=== PATIENT | male | born 1980 | race Caucasian/White ===

== ENCOUNTER 2020-04-11 12:52 | Outpatient (REF) | payer MEDICARE, MEDICAID, SELFPAY ==
[2020-04-11 14:36] LABS: MANUAL DIFF FLAG NO
[2020-04-11 14:42] LABS: Basophils Percent Auto 0.9 % (0-2); Eosinophils Absolute Auto 0.2 X10*3/uL (0.0-0.4); Eosinophils Percent Auto 4.3 % (0-4); Hematocrit 41.9 % (42-52); Hemoglobin 13.9 g/dl (14.0-18.0); Lymphocytes Absolute Auto 2.3 X10*3/uL (1.2-4.9); Lymphocytes Percent Auto 51.7 % (20-40); Mean Corpuscular HGB Conc 33.2 g/dl (31.0-36.0); Mean Corpuscular Hemoglobin 28.1 pg (27.0-33.0); Mean Corpuscular Volume 84.6 fL (80-98); Mean Platelet Volume 9.4 fL (9.4-12.4); Monocytes Absolute Auto 0.4 X10*3/uL (0.1-1.2); Monocytes Percent Auto 8.7 % (2-11); Neutrophils Absolute Auto 1.5 X10*3/uL (2.0-8.3); Neutrophils Percent Auto 34.4 % (45-73); Platelet Count 317 X10*3/uL (160-400); Red Blood Count 4.95 X10*6/uL (4.60-5.80); Red Cell Distribution Width 12.1 % (11.0-16.0); White Blood Count 4.4 X10*3/uL (4.8-10.8)
[2020-04-11 15:12] LABS: Alanine Aminotransferase 42 U/L (0-40); Albumin Level 4.6 g/dL (3.5-5.0); Alkaline Phosphatase 63 U/L (39-117); Anion Gap 13 (12-20); Aspartate Amino Transferase 32 U/L (5-37); Bilirubin Total 0.8 mg/dL (0.0-1.0); Blood Urea Nitrogen 11 mg/dL (9-16); Calcium 9.4 mg/dL (8.4-10.2); Carbon Dioxide 28 mmol/L (22-29); Chloride 106 mmol/L (96-108); Estimated Glomerular Filt Rate > 60; Glucose Random 98 mg/dL (60-115); Potassium 4.3 mmol/l (3.3-5.1); Sodium 143 mmol/L (135-145); Total Protein 7.3 g/dL (6.5-8.0)
[2020-04-11 15:17] LABS: Alanine Aminotransferase 42 U/L (0-40); Albumin Level 4.6 g/dL (3.5-5.0); Alkaline Phosphatase 64 U/L (39-117); Anion Gap 13 (12-20); Aspartate Amino Transferase 31 U/L (5-37); Bilirubin Direct 0.3 mg/dL (0.0-0.5); Bilirubin Total 0.8 mg/dL (0.0-1.0); Blood Urea Nitrogen 11 mg/dL (9-16); Calcium 9.3 mg/dL (8.4-10.2); Carbon Dioxide 27 mmol/L (22-29); Chloride 106 mmol/L (96-108); Cholesterol 184 mg/dL; Estimated Glomerular Filt Rate > 60; Glucose Fasting 99 mg/dL (60-99); HDL Cholesterol 42 mg/dL; LDL Cholesterol Calculated 129 mg/dl; Potassium 4.3 mmol/l (3.3-5.1); Sodium 142 mmol/L (135-145); Total Protein 7.3 g/dL (6.5-8.0); Triglycerides 67 mg/dL
[2020-04-11 15:26] LABS: TSH reflex Free T4 1.13 mIU/mL (0.32-4.0)
[2020-04-12 10:09] LABS: HBsAGNum1 0.23 S/CO (0.00-0.99); HIV AB/AG Nonreactive (Nonreactive); HIV Num 1 0.06 S/CO (0.00-0.99); Hepatitis B Surface Antigen Negative (Negative); ~HepC Num1 0.12 S/CO (0.00-0.79); ~Hepatitis C Antibody Nonreactive (Nonreactive)
== END 2020-04-11 12:53 | disposition home or self-care (01) ==
LOC: HO.LAB 12:52
PROVIDERS: Visit Provider Nurse Practitioner Family
DX: Z11.4 Encounter for screening for human immunodeficiency virus [HIV] (principal); Z01.84 Encounter for antibody response examination; L30.4 Erythema intertrigo; T14.8XXA Other injury of unspecified body region, initial encounter; F11.20 Opioid dependence, uncomplicated
CPT/HCPCS: 36415; 80048; 80053; 80061; 80076; 84443; 85025; 86803; 87340; 87389

== ENCOUNTER 2021-05-10 13:55 | Outpatient (REF) | payer MEDICARE, MEDICAID, SELFPAY ==
[2021-05-10 15:00] LABS: Influenza A PCR NEGATIVE (Negative); Influenza B PCR NEGATIVE (Negative); Resp Syncy Virus RNA Qual PCR POSITIVE (Negative); SARS COV2 PCR INHOUSE NEGATIVE (Negative)
== END 2021-05-10 13:56 | disposition home or self-care (01) ==
LOC: HO.LNP 13:55
PROVIDERS: Visit Provider Physician Assistant Medical
DX: Z20.822 Contact with and (suspected) exposure to COVID-19 (principal); J06.9 Acute upper respiratory infection, unspecified
CPT/HCPCS: 0241U

== ENCOUNTER 2021-11-29 12:56 | Outpatient (REF) | payer MEDICARE, MEDICAID, SELFPAY ==
[2021-11-29 13:12] LABS: MANUAL DIFF FLAG NO
[2021-11-29 13:27] LABS: Basophils Absolute Auto 0.1 X10*3/uL (0.0-0.2); Basophils Percent Auto 0.8 % (0-2); Eosinophils Absolute Auto 0.4 X10*3/uL (0.0-0.4); Eosinophils Percent Auto 5.7 % (0-4); Hematocrit 46.1 % (42.0-52.0); Hemoglobin 15.5 g/dl (14.0-18.0); Imm Gran Abs Auto 0.01 X10*3/uL (0.00-0.03); Imm Gran Pct Auto 0.2 % (0.0-0.4); Lymphocytes Absolute Auto 2.5 X10*3/uL (1.2-4.9); Lymphocytes Percent Auto 40.4 % (20-40); Mean Corpuscular HGB Conc 33.6 g/dl (31.0-36.0); Mean Corpuscular Hemoglobin 28.4 pg (27.0-33.0); Mean Corpuscular Volume 84.4 fL (80.0-98.0); Mean Platelet Volume 9.1 fL (9.4-12.4); Monocytes Absolute Auto 0.5 X10*3/uL (0.1-1.2); Monocytes Percent Auto 7.8 % (2-11); Neutrophils Absolute Auto 2.8 x10*3/uL (2.0-8.3); Neutrophils Percent Auto 45.1 % (45-73); Platelet Count 290 X10*3/uL (160-400); Red Blood Count 5.46 X10*6/uL (4.60-5.80); Red Cell Distribution Width 13.1 % (11.0-16.0); White Blood Count 6.2 X10*3/uL (4.8-10.8)
[2021-11-30 08:07] LABS: ~HepC Num1 0.12 S/CO (0.00-0.79); ~Hepatitis C Antibody Nonreactive (Nonreactive)
[2021-11-30 08:08] LABS: HBS Num1 0.61 mIU/mL (0-7.99); HBsAGNum1 0.26 S/CO (0.00-0.99); HIV AB/AG Nonreactive (Nonreactive); HIV Num 1 0.06 S/CO (0.00-0.99); Hepatitis B Surface Antigen Negative (Negative); ~Hepatitis B Surface Antibody NONREACTIVE (Nonreactive)
== END 2021-11-29 12:57 | disposition home or self-care (01) ==
LOC: HO.LAB 12:56
PROVIDERS: Visit Provider Internal Medicine
DX: Z11.4 Encounter for screening for human immunodeficiency virus [HIV] (principal); F11.20 Opioid dependence, uncomplicated
CPT/HCPCS: 36415; 85025; 86706; 86803; 87340; 87389

== ENCOUNTER 2023-08-20 13:34 | Outpatient (REF) | payer MEDICARE, MEDICAID, SELFPAY ==
[2023-08-20 14:18] LABS: MANUAL DIFF FLAG NO
[2023-08-20 15:17] LABS: Basophils Percent Auto 0.5 % (0-2); Eosinophils Absolute Auto 0.3 X10*3/uL (0.0-0.4); Eosinophils Percent Auto 3.3 % (0-4); Hematocrit 41.5 % (42.0-52.0); Hemoglobin 14.2 g/dl (14.0-18.0); Imm Gran Abs Auto 0.02 X10*3/uL (0.00-0.03); Imm Gran Pct Auto 0.2 % (0.0-0.4); Lymphocytes Absolute Auto 2.6 X10*3/uL (1.2-4.9); Lymphocytes Percent Auto 31.2 % (20-40); Mean Corpuscular HGB Conc 34.2 g/dl (31.0-36.0); Mean Corpuscular Hemoglobin 28.5 pg (27.0-33.0); Mean Corpuscular Volume 83.3 fL (80.0-98.0); Mean Platelet Volume 8.9 fL (9.4-12.4); Monocytes Absolute Auto 0.7 X10*3/uL (0.1-1.2); Monocytes Percent Auto 8.4 % (2-11); Neutrophils Absolute Auto 4.7 x10*3/uL (2.0-8.3); Neutrophils Percent Auto 56.4 % (45-73); Platelet Count 335 X10*3/uL (160-400); Red Blood Count 4.98 X10*6/uL (4.60-5.80); Red Cell Distribution Width 12.2 % (11.0-16.0); White Blood Count 8.3 X10*3/uL (4.8-10.8)
[2023-08-21 04:22] LABS: HBsAGNum1 0.46 S/CO (0.00-0.99); HIV AB/AG Nonreactive (Nonreactive); HIV Num 1 0.05 S/CO (0.00-0.99); Hepatitis B Surface Antigen Negative (Negative); ~HepC Num1 0.13 S/CO (0.00-0.79); ~Hepatitis C Antibody Nonreactive (Nonreactive)
== END 2023-08-20 13:35 | disposition home or self-care (01) ==
LOC: HO.LAB 13:34
PROVIDERS: PCP Physician Assistant; Visit Provider Internal Medicine
DX: Z11.4 Encounter for screening for human immunodeficiency virus [HIV] (principal); F11.20 Opioid dependence, uncomplicated
CPT/HCPCS: 36415; 85025; 86803; 87340; 87389

== ENCOUNTER 2025-04-21 11:37 | Outpatient (AMB) | payer MEDICARE, MEDICAID, SELFPAY ==
--- NOTE | 2025-04-21 11:38 | MHC.PC.OV ---
Vital Signs 04/21/25 11:41 04/21/25 12:04 Height 6 ft 1 in Weight 301 lb 6 oz BMI 39.8 BP 160/110 H 148/96 H Blood Pressure Location Lt brachial Lt brachial Position Sitting Sitting Pulse 84 Pulse Source Pulse Oximeter Temp 97.3 F Temp Source Temporal Artery Scan Pulse Oximetry (%) 96 Oxygen Delivery Method Room Air Intake Visit Reasons: sleep apnea and constant coughing Allergies No Known Allergies Allergy (Verified 04/21/25 11:48) Medication List - Last Reconciled 04/21/25 by Josie Mc PA-C buprenorphine-naloxone 8-2 mg (Suboxone) 25 mg sublingual DAILY varenicline tartrate (Chantix Starting Month Box) PO PER PKG DIR Tobacco use date assessed: 04/21/25 Dental Screening Dental Screen Date: 04/21/25 Did you have a dental visit in the last 12 months?: Yes Did you have a dental problem in the last 6 months where you did not have access to dental care?: No Was dental information given to patient?: Patient has dentist HPI sleep apnea and constant coughing HPI Details 44 year old male coming to the office for the first time. Presenting as a new patient with a persistent cough and dyspnea. He reports that for the last two weeks he has been experiencing a nocturnal cough and feels like he is drowning and gasps for air when lying on his back. This is associated with excessive sleepiness of 10-12 hours per day, which is abnormal for him. These symptoms began after he had a COVID-19 infection in early March. His girlfriend has noted that he stops breathing and gasps for air regularly during sleep. The patient is a daily cigarette smoker and has been smoking since he was 19, though he previously quit for 4.5 years. He has previously tried Chantix, the patch, gum, lozenges, and Wellbutrin to quit smoking with limited success. He is currently using Chantix again through [employer]. [facility] Family History Father No problems noted. Mother No problems noted. Maternal Grandmother Lung cancer Paternal Grandfather Heart attack Paternal Grandmother Heart attack Social History Housing: House Patient Tobacco Use Status: Current everyday Tobacco user Tobacco use type: Cigarette Cigarettes Per Day: 20 e-Cigarette/Vaping Use: Never Used Second Hand Smoke Exposure: Yes service: No Current occupational status: disabled Cognitive needs: No Hearing needs: No Vision needs: No Questionnaire PHQ-9 Over the last 2 weeks, how often have you been bothered by any of the following problems? 1. Little interest or pleasure in doing things: more than half the days 2. Feeling down, depressed, or hopeless: not at all 3. Trouble falling or staying asleep, or sleeping too much: several days 4. Feeling tired or having little energy: more than half the days 5. Poor appetite or overeating: not at all 6. Feeling bad about yourself - or that you are a failure or have let yourself or your family down: not at all 7. Trouble concentrating on things, such as reading the newspaper or watching television: not at all 8. Moving or speaking so slowly that other people could have noticed. Or the opposite - being so fidgety or restless that you have been moving around a lot more than usual: not at all 9. Thoughts that you would be better off or of hurting yourself in some way: not at all Total score: 5 Depression Screening Interpretation: Positive Depression Screening Follow-up: Existing condition and Declines treatment Depression Screening Done: Yes Source: Developed by Drs. Vinayak George, Ana Vidales, Darrius Mancini and colleagues, with an educational tran from [employer] Thrive Questionnaire Date Thrive assessed: 04/21/25 I am a: Patient What is your living situation today?: I have a steady place to live THRIVE Score: 0 AUDIT C Alcohol Use Questionnaire (AUDIT-C) 1. How often do you have a drink containing alcohol?: Never 3. How often do you have six or more drinks on one occasion?: Never Total Score: 0 MEENA-7 AMB Questionnaire MEENA-7 Date MEENA - 7 assessed: 04/21/25 Feeling nervous, anxious, or on edge: 0 = Not at all Not being able to stop or control worryin = Not at all Worrying too much about different things: 0 = Not at all Trouble relaxin = Not at all Being so restless that it is hard to sit still: 0 = Not at all Becoming easily annoyed or irritable: 1 = Several days Feeling afraid as if something awful might happen: 0 = Not at all Total MEENA-7 score (0-4 normal; 5-9 mild; 10-14 moderate; 15-21 severe): 1 Source: Developed by Drs. Vinayak George, Ana Vidales, Darrius Mancini and colleagues, with an educational tran from [employer]. Review of Systems Const Denies body aches, Denies fatigue, Reports fever(s), Denies frequent falls, Reports headache(s) and Denies weakness Eyes Reports no additional complaints and Denies change in vision ENT Denies dizziness, Denies facial pain, Reports headache(s) and Denies nasal congestion Card Denies chest pain, Denies syncope, Denies irregular heart rhythm, Denies leg edema, Denies lightheadedness and Reports dyspnea Resp Reports cough, Reports excessive phlegm production and Reports dyspnea GI Denies constipation, Denies diarrhea, Denies nausea and Denies vomiting Denies dysuria, Denies urinary frequency, Denies urinary hesitancy and Denies urinary urgency Musc Denies back pain and Denies myalgias Skin/Breast Reports system reviewed and no additional complaints, except as documented Neuro Denies dizziness, Denies syncope, Denies frequent falls, Reports headache(s) and Denies weakness Psych Reports no additional complaints Endo Denies fatigue Physical exam (Primary Care) Vital Signs: Last Vital Signs Temp 97.3 F 04/21/25 11:41 Pulse 84 04/21/25 11:41 BP 148/96 H 04/21/25 12:04 Pulse Ox 96 04/21/25 11:41 Oxygen Delivery Method Room Air 04/21/25 11:41 BMI result Body Mass Index 39.8 Tobacco/Smoking Status: Tobacco use Status Tobacco use date assessed 04/21/25 04/21/25 11:48 Patient Tobacco Use Status Current everyday Tobacco 04/21/25 11:48 Tobacco use type Cigarette 04/21/25 11:48 e-Cigarette/Vaping Use Never Used 04/21/25 11:48 PHQ-9: PHQ-9 Score PHQ-9: Total score 5 04/21/25 14:41 Depression Screening Interpretation: Positive Depression Screening Follow-up: Existing condition and Declines treatment Thrive Assessment: Date of Thrive Assessment Date Thrive assessed 04/21/25 04/21/25 11:50 Const General: cooperative, healthy appearing, comfortable and no acute distress Orientation/consciousness: patient oriented x3 HENMT Head: Yes normocephalic Ears: hearing grossly normal bilaterally General nose exam: Normal external nose present Eyes General: appearance normal, both eyes and all related structures Conjunctivae: conjunctivae normal Neck Neck: Yes full ROM and Yes no lymphadenopathy Resp Effort & Inspection: normal respiratory effort Auscultation: clear to auscultation bilaterally, no crackles, no rales, no rhonchi and no wheezes Cardio Rate: regular rate Rhythm: regular rhythm Skin General skin exam: no rashes or lesions noted Neuro General: patient oriented x3 Gait exam (Neuro): Normal gait present Extrem General: Yes normal to inspection, Yes full ROM and No edema Psych Affect: normal affect Attitude: cooperative Insight: Good insight present (Psych) Judgement: Good judgement present (Psych) Coding Level of Care Code New Pt Level 4 (08696) Diagnoses Tobacco use disorder F17.200 Substance use disorder F19.90 Elevated blood pressure reading R03.0 Cough R05.9 Hypersomnolence G47.10 Assessment & Plan Assessment & Plan (1) Tobacco use disorder: Comment: Tonie Alvarado Code(s): F17.200 - Nicotine dependence, unspecified, uncomplicated Category: Medical Plan: The patient is a daily smoker who expresses interest in quitting. He has a history of trying multiple cessation aids, including Chantix, which he recently started again. If the current trial of Chantix is unsuccessful, a more consistent trial of Wellbutrin can be considered as the next step, though not concurrently due to potential cardiac effects. (2) Substance use disorder: Comment: Tonie Alvarado Code(s): F19.90 - Other psychoactive substance use, unspecified, uncomplicated Category: Medical Plan: Continue to follow with clean site and continue on Suboxone (3) Elevated blood pressure reading: Code(s): R03.0 - Elevated blood-pressure reading, without diagnosis of hypertension Category: Medical Plan: The patient's blood pressure was elevated at 146/98 mmHg during the visit. While this may be reactive to his acute illness, stress, or other factors, monitoring is warranted. A blood pressure cuff will be provided for home monitoring, with instructions to check it three to four times a week and keep a log. Lifestyle modifications, including salt reduction, were discussed. A follow-up is scheduled in six weeks to review the blood pressure log and lab results. (4) Cough: Code(s): R05.9 - Cough, unspecified Category: Medical Plan: The patient's two-week history of cough, dyspnea when supine, and fatigue following a recent viral illness is concerning for a lower respiratory tract infection, including pneumonia, especially given his smoking history. A stat chest X-ray and blood work including a CBC have been ordered to rule out pneumonia and an acute infectious process. A prescription for Mucinex was provided for symptomatic relief of mucus production. If the chest X-ray confirms pneumonia, antibiotics will be prescribed; if it is normal, a course of prednisone will be considered for bronchitis. (5) Hypersomnolence: Code(s): G47.10 - Hypersomnia, unspecified Category: Medical Plan: The patient's report of excessive sleepiness and his partner's observation of apneic episodes and gasping for air during sleep are highly suspicious for obstructive sleep apnea. An order has been placed for an at-home sleep study to confirm the diagnosis. Plan This note was constructed using voice recognition software. While every effort has been made to ensure accuracy and harbor tug captain, still areas may have been included sometimes these areas may affect the content or meeting of the given symptoms. Total time spent caring for the patient today was 30 minutes. This includes time spent before the visit reviewing the chart, time spent during the visit, and time spent after the visit and documentation. Patient was informed and verbally consented to the use of an ambient scribe for clinic note documentation during this visit. Orders: Orders TSH reflex Free T4 04/21/25 Z13.29 - Encounter for screening for other suspected endocrine disorder Vitamin B12 and Folate 04/21/25 Z13.21 - Encounter for screening for nutritional disorder Vitamin D 25-OH Total 04/21/25 Z13.21 - Encounter for screening for nutritional disorder Complete Blood Count Auto Diff 04/21/25 Z13.0 - Encounter for screening for diseases of the blood and blood-forming organs and certain disorders involving the immune mechanism Lipid Panel 04/21/25 Z13.220 - Encounter for screening for lipoid disorders XR chest 2V 04/21/25 R05.9 - Cough, unspecified NT Pro B Type Natriuretic Pept 04/21/25 R05.9 - Cough, unspecified Hemoglobin A1c 04/21/25 Z13.1 - Encounter for screening for diabetes mellitus Comprehensive Met. Panel 04/21/25 F19.90 - Other psychoactive substance use, unspecified, uncomplicated RT home sleep study 04/21/25 G47.10 - Hypersomnia, unspecified Referrals Pulmonology Referral J84.9 - Interstitial pulmonary disease, unspecified Medications: New azithromycin For 250 mg dose pack: take 500 mg today (day 1), then 250 mg for 4 days (days 2-5) PO 6 tabs 0RF prednisone Take 4 tablets on days 1-2, take 3 tablets on days 3-4, take 2 tablets on days 5-6, take 1 tablet on days 7-8. 10 mg PO DIRECTED 20 tabs 0RF guaifenesin ER (Mucinex) 600 mg PO Q12H PRN 30 tabs 0RF congestion blood pressure test kit-large As directed 1 ea 0RF R03.0 - Elevated blood-pressure reading, without diagnosis of hypertension
[2025-04-21 11:41] VITALS: BP 160/110; PULSE 84; TEMP 36.3; O2SAT 96; BMI 39.8
[2025-04-21 12:04] VITALS: BP 148/96
--- OUTSIDE RECORDS SUMMARY | 2025-04-21 14:35 | XMS_ITS | Data Portability ---
Author Organization [place] - [facility], [facility] Address [address] [place] [address] Assessment Encounter Date Assessment Date Assessment LastModified by Organization Details LastModified Time 02/06/2023 02/06/2023 Rapid strep: Negative Jessi: + COVID, influenza B 1. Contact with and (suspected) exposure to other viral communicable diseases 2. COVID-19 3. Influenza B PLAN: R est, push fluids, Tylenol prn, gargles, change toothbrush Pt requesting script for 800mg ibuprofen as directed Fu prn/with worsening symptoms The patient understands and agrees with the plan [email or web address] Not available 02/06/2023 15:04:58 Plan of Treatment Reminders Order Date Submit Date Provider Last Modified By Organization Details Last Modified Time Details Appointments None recorded. Lab rapid influenza virus A + B and SARS CoV + SARS CoV 2 Ag panel, [place], upper respirato ry specimen 2022 023 [facility], [address] [place] [address], [id number], 3 14:39:49 rapid strep group A, throat 2022 023 [facility], [address] [place] [address], [id number], 14:29:26 Referral None recorded. Procedures None recorded. Surgeries None recorded. Imaging None recorded. Medication Orders ibuprofen 800 mg tablet 2022 023 [id number], [address] [place], [place], [phone], 3 15:04:36 albuterol sulfate HFA 90 mcg/actua tion aerosol inhaler 2022 023 [id number], [address], [place], [phone], 3 15:03:03 Patient TargetsNo targets recorded. Patient InstructionsNo instructions recorded. Reason for Referral None Reported. Results Created Date Observation Date Name Description Value Unit Range Abnormal Flag Note LastModifiedBy Organization Detail LastModifiedTime 02/07/2002/09/2023 STREP TOCOC CUS, GROUP A CULTU RE streptococcu s, group A culture SEE NOTE STREP TOCOC CUS, GROUP A CULTU RE Micro Numbe r: [id number] Test Statu s: Final Speci men Sourc e: Not given Speci men Quali ty: Adequ ate Resul t: No group A Strep tococ cus isola fuentes Not Available [facility] [address], [place], [address], 02/09/2023 05:16:55 02/07/2002/06/2023 rapid influ ho virus A + B and SARS CoV + SARS CoV 2 Ag panel , [place], upper respi rator y speci men flu A negati ve normal Not Available [address], [address], 02/06/2023 14:17:34 02/07/20 23 02/06/2023 rapid influ ho virus A + B and SARS CoV + SARS CoV 2 Ag panel , [place], upper respi rator y speci men flu B positi ve abnormal Not Available [address], [address], 02/06/2023 14:17:34 02/07/20 23 02/06/2023 rapid influ ho virus A + B and SARS CoV + SARS CoV 2 Ag panel , [place], upper respi rator y speci men sars positi ve abnormal Not Available [address], [address], 02/06/2023 14:17:34 02/07/20 23 02/06/2023 rapid strep group A, throa t rapid strep negati ve normal Not Available [address], [address], 02/06/2023 14:17:37 02/07/20 23 02/06/2023 rapid strep group A, throa t internal control verified Not Available [address], [address], 02/06/2023 14:17:37 Result Notes None recorded. Problems Name Problem SNOMED Code Status Onset Date Resolution Date Notes Provider Name and Address Organization Details Recorded Time Body mass index 30+ - obesity 185596274 Active 023 OSMAR HUERTA [address] [place], [address], [facility] 3 14:11:41 Tobacco user 819708963 Active 023 OSMAR HUERTA [address] [place], [address], [facility] 3 14:18:50 COVID-19 273438793 Active 023 02/12 OSMAR HUERTA [address] [place], [address], [facility] 3 15:04:03 Problem Notes None recorded. Medical Equipment None Reported. Allergies No known drug allergies Medications Name Sig Start Date Stop Date Status Note LastModified by Organization Details LastModified Time ibuprofen 800 mg tablet Take 1 tablet 3 times a day by oral route for 5 days. 2022 active Not Available Not Available Not Avai lable albuterol sulfate HFA 90 mcg/actuati on aerosol inhaler Inhale 2 puffs every 4-6 hours by inhalation route for 5 days. 2022 active Not Available Not Available Not Avai lable Suboxone active Not Available Not Avai lable Not Available Chantix active Not Available Not Avail able Not Available Vitals Date Recorded Body height Body mass index (BMI) Body weight Oxygen saturation Oxygen saturation in Arterial blood by Pulse oximetry Heart rate Systolic And Diastolic Provider Name and Address Organization Details Last Updated DateTime 3 187.96 cm 38.4 kg/m2 649120. 12 g 97 % 97 % 85 /min 143/99 mm[Hg] Bhakti Franklin [facility] 14:01:43 Date Recorded Body height Body mass index (BMI) Body weight Oxygen saturation Oxygen saturation in Arterial blood by Pulse oximetry Body temperature Systolic And Diastolic Provider Name and Address Organization Details Last Updated DateTime 3 187.96 cm 38.4 kg/m2 864646. 12 g 97 % 97 % 97.9 [degF] 143/99 mm[Hg] Pawel Gaona [facility] 3 14:10:56 Social History None recorded. Functional Status None recorded. Mental Status None recorded. Family History Nothing Reported. Medical History No medical history recorded. Past Encounters Encounter ID Performer Location Encounter Start Date Encounter Closed Date Diagnosis/Indication Diagnosis SNOMED-CT Code Diagnosis ICD10 Code Diagnosis IMO Codes Diagnosis Note [id number] OSMAR HUERTA [facility] [address] [place] [address] 02/06/2023 14:10:21 02/06/2023 17:28:01 Upper respiratory infection 60107724 J06.9 COVID-19 005082476 U07.1 Influenza caused by Influenza B virus 93654595 J10.1 Health Concerns Section Related Observation LastModified by Organization Detai ls LastModified Time None Recorded Concern Status LastModified by Organization Details LastModified Time None Recorded Advance Directives Directive None Recorded Payers Insurance Date Sequence Insurance Name Policy Number Policy Hutchinson Covered Member ID Hutchinson Member ID Guarantor Name 03/06/2023 1 [place]ICARE B-[place]: [employer] Horace Yin [id number] Horace Yin 02/07/2023 MEDICARE B-[place]: [facility] Horace Mott Annamaria [id number] 7 Horace Mott Annamaria 02/07/2023 MEDICARE A-[place]: [facility] Horace Chaparrokathejesus [id number] 7 Horace Mott Annamaria Notes Date Note Type Note Provider Name and Address Organization Details Recorded Time 02/06/2023 text/html ROS as noted in the HPI The patient is a pleasant 42 year old male c/o ST, ear fullness, dry cough/wheezing, feeling feverish for the last week. The patient denies V/D, ear pain, SOB/hemoptysis, rash, myalgias/arthra lgias or loss of taste/smell. +smoker:15/day; trying to quit. No recent sick contacts/travel . Has had previous negative COVID testing. Had COVID vaccinations. Poor water drinker. Not taking any OTC cold medications. OSMAR HUERTA [address] [place], [address], [facility] 02/06/2023 15:05:31
== END 2025-04-21 12:25 | disposition home or self-care (01) ==
LOC: HO.HMCH 11:37
PROVIDERS: PCP Physician Assistant
DX: F17.200 Nicotine dependence, unspecified, uncomplicated (principal); F19.90 Other psychoactive substance use, unspecified, uncomplicated; R03.0 Elevated blood-pressure reading, without diagnosis of hypertension; R05.9 Cough, unspecified; G47.10 Hypersomnia, unspecified

== ENCOUNTER 2025-04-21 11:37 | Outpatient (REF) | payer MEDICARE, MEDICAID, SELFPAY ==
--- NOTE | ~2025-04-21 | XR_ITS ---
EXAMINATION: XR CHEST CLINICAL INFORMATION: R05.9 - Cough, unspecified COMPARISON: April 25, 2018 TECHNIQUE: PA and lateral views FINDINGS: Pulmonary reticular pattern. No gross consolidation, pleural effusion or pneumothorax. No hyperinflation. Cardiomediastinal silhouette size is normal. Multilevel spondylosis, thoracolumbar spine resulting in kyphotic deformity. XR/XR chest 2V IMPRESSION: Concerning chronic interstitial lung disease. Superimposed acute small airway inflammatory process cannot be excluded. Electronically signed by: Hugh Ambriz MD 04/21/2025 01:18 PM EDT
[2025-04-21 13:31] LABS: MANUAL DIFF FLAG NO
[2025-04-21 13:46] LABS: Hematocrit 44.9 % (42.0-52.0); Hemoglobin 14.9 g/dl (14.0-18.0); Imm Gran Abs Auto 0.02 X10*3/uL (0.00-0.03); Imm Gran Pct Auto 0.2 % (0.0-0.4); Lymphocytes Absolute Auto 2.7 X10*3/uL (1.2-4.9); Mean Corpuscular HGB Conc 33.2 g/dl (31.0-36.0); Mean Corpuscular Hemoglobin 28.4 pg (27.0-33.0); Mean Corpuscular Volume 85.5 fL (80.0-98.0); NRBC Abs Auto 0.000 X10*3/uL (0.0-0.012); NRBC Pct Auto 0.0 /100WBC (0.0-0.2); Platelet Count 289 X10*3/uL (160-400); Red Blood Count 5.25 X10*6/uL (4.60-5.80); White Blood Count 8.0 X10*3/uL (4.8-10.8)
[2025-04-21 14:41] LABS: Albumin Level 4.7 g/dL (3.5-5.0); Alkaline Phosphatase 64 U/L (39-117); Anion Gap 11 (12-20); Aspartate Amino Transferase 39 U/L (5-37); Blood Urea Nitrogen 10 mg/dL (9-16); Calcium 9.2 mg/dL (8.4-10.2); Carbon Dioxide 26 mmol/L (22-29); Chloride 108 mmol/L (96-108); Cholesterol 178 mg/dL (<200); Estimated Glomerular Filt Rate > 60; HDL Cholesterol 34 mg/dL (>40); Potassium 4.1 mmol/L (3.3-5.1); Sodium 141 mmol/L (135-145); Total Protein 7.4 g/dL (6.5-8.0); Triglycerides 118 mg/dL (<150)
[2025-04-21 14:50] LABS: NT Pro B Type Natriuretic Pept 50.9 pg/mL (<300)
[2025-04-21 15:13] LABS: Alanine Aminotransferase 42 U/L (0-40)
[2025-04-21 15:19] LABS: Folate 8.7 ng/mL (> or = 4.0); Vitamin B12 362 pg/mL (200-900)
--- OUTSIDE RECORDS SUMMARY | 2025-04-21 15:51 | XMS_ITS | Clinical Summary ---
Author Organization [facility] Address [address] [place] [address] Care Team Providers Care Cloth Layer Name Role Phone Unavailable Primary Care Provider Unavailabl e Social History Tobacco Use Types Packs/Day Years Used Date Smoking Tobacco: Never Assessed Sex and Gender Information Value Date Recorded Sex Assigned at Not on file Legal Sex Male 5:58 AM EST Gender Identity Not on file Sexual Orientation Not on file Plan of Treatment Health Maintenance Due Date Last Done Comments DTaP,Tdap,and Td Vaccines (1 - Tdap) 2000 Hepatitis B Vaccines (1 of 3 - 19+ 3-dose series) 2000 HPV Vaccines (1 - 3-dose SCD M series) 2008 Depression Screening 06/23/2024 COVID-19 Vaccine (1 - 2023-2 5 season) 2025 Influenza Vaccine (#1) 2025 RSV Immunization Adult Patie nts (1 - 1-dose 75+ series) 2056 HIB Vaccines Aged Out No longer eligi ble based on patient's age to complete this topic Hepatitis A Vaccines Aged Out No long er eligible based on patient's age to complete this topic IPV Vaccines Aged Out No longer eligi ble based on patient's age to complete this topic MMR Vaccines Aged Out No longer eligi ble based on patient's age to complete this topic Meningococcal ACWY Vaccine Aged Out N o longer eligible based on patient's age to complete this topic Meningococcal B Vaccine Aged Out No l onger eligible based on patient's age to complete this topic Pneumococcal Vaccine: Pediat rics (0 to 5 Years) and At-Risk Patients (6 to 49 Years) Aged Out No longer eligible b ased on patient's age to complete this topic RSV Immunization Patients Un bigg 20 months Aged Out No longer eligible b ased on patient's age to complete this topic Varicella Vaccines Aged Out No longer eligible based on patient's age to complete this topic
== END 2025-04-21 11:38 | disposition home or self-care (01) ==
LOC: HO.LAB 11:37
PROVIDERS: PCP Physician Assistant
DX: R05.3 Chronic cough (principal); R03.0 Elevated blood-pressure reading, without diagnosis of hypertension; F19.90 Other psychoactive substance use, unspecified, uncomplicated; R06.00 Dyspnea, unspecified; F17.210 Nicotine dependence, cigarettes, uncomplicated; G47.10 Hypersomnia, unspecified; Z13.29 Encounter for screening for other suspected endocrine disorder; Z13.21 Encounter for screening for nutritional disorder; Z13.1 Encounter for screening for diabetes mellitus; Z13.0 Encounter for screening for diseases of the blood and blood-forming organs and certain disorders involving the immune mechanism; Z13.220 Encounter for screening for lipoid disorders
CPT/HCPCS: 36415; 71046; 80053; 80061; 82306; 82607; 82746; 83036; 83880; 84443; 85025; 96127; 99202

== ENCOUNTER → 2025-04-21 13:03 | Outpatient (BNV) | payer MEDICARE, MEDICAID, SELFPAY | PROVIDERS: PCP Physician Assistant; Visit Provider Radiology Diagnostic Radiology | DX: R05.9 Cough, unspecified (principal) | CPT/HCPCS: 71046 ==

== ENCOUNTER 2025-05-27 13:22 | Outpatient (AMB) | payer MEDICARE, MEDICAID, SELFPAY ==
[2025-05-27 13:30] VITALS: BP 148/82; PULSE 82; O2SAT 94; BMI 40.7
--- NOTE | 2025-05-27 13:30 | MHC.OFFVIS ---
Vital Signs 05/27/25 13:30 Height 6 ft 1 in Weight 308 lb 4 oz BMI 40.7 BP 148/82 H Blood Pressure Location Rt brachial Position Sitting Pulse 82 Pulse Source Pulse Oximeter Pulse Oximetry (%) 94 Oxygen Delivery Method Room Air Intake Visit Reasons: Interstitial pulmonary disease Allergies No Known Allergies Allergy (Verified 05/27/25 13:33) HPI HPI Interstitial pulmonary disease: Details: Horace is a pleasant 44 year old, current 35+ pack year smoker, with underlying h/o substance abuse on Suboxone. He was referred by PCP for pulmonary evaluation after recent abnormal CXR which was ordered for subacute cough. CXR demonstrated pulmonary reticular pattern, concerning for chronic interstitial lung disease vs superimposed acute small airway inflammatory process cannot be excluded. He reports that the cough began a couple of weeks after his second COVID-19 infection and lasted for approximately one month. The cough resolved with a course of prednisone and is no longer present. He denies any current chest tightness, wheezing, or shortness of breath when not sick. He has a history of recurrent respiratory infections but no personal or family history of asthma. Past albuterol use made him feel shaky. The patient is a current smoker, consuming two packs per day. He started smoking at age 19 and previously quit for five years. Prior quit attempts with Chantix, nicotine patches, and gum have been unsuccessful. 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 Blood work has shown slightly elevated eosinophils since 2019, and he tends to get sick in the spring and fall, unsure of seasonal allergies, no recent allergy testing. The patient reports sometimes waking up gasping for air and has a sleep study scheduled in 10 days to evaluate for sleep apnea, ordered by PCP. The patient reports consistently elevated blood pressure readings of 140/100 mmHg for the last few weeks and possibly for over a year. He recently obtained a blood pressure cuff from PCP and will be further discussing values at next appointment. [facility] Family History Father No problems noted. Mother No problems noted. Maternal Grandmother Lung cancer Paternal Grandfather Heart attack Paternal Grandmother Heart attack Social History (Updated 05/27/25 @ 13:33 by Na Downs CMA) Housing: House Patient Tobacco Use Status: Current everyday Tobacco user Tobacco use type: Cigarette Cigarette Packs Per Day: 2 Cigarettes Per Day: 40 e-Cigarette/Vaping Use: Never Used Second Hand Smoke Exposure: Yes service: No Current occupational status: disabled Cognitive needs: No Hearing needs: No Vision needs: No Review of Systems Const Denies chills, Denies excessive sweating, Denies fever(s), Denies headache(s) and Denies night sweats Eyes Denies dry eyes, Denies irritation and Denies itchy eyes ENT Reports Normal hearing present, Denies headache(s), Denies nasal congestion, Denies nasal discharge, Denies post nasal drip and Denies sore throat Card Denies chest pain, Denies chest pain at rest, Denies chest pain with activity, Denies claudication, Denies leg edema, Denies dyspnea, Denies dyspnea on exertion, Denies orthopnea and Denies paroxysmal nocturnal dyspnea Resp Denies chest congestion, Denies cough, Denies excessive phlegm production, Denies pain on inspiration, Denies pain with cough, Denies dyspnea, Denies dyspnea on exertion, Denies stridor and Denies wheezing Musc Denies myalgias Neuro Reports Normal hearing present and Denies headache(s) Endo Denies excessive sweating Mike/Lymph Denies lymphadenopathy Aller/Immun Denies itchy eyes, Denies seasonal rhinorrhea and Denies wheezing Physical Exam Vital Signs: Last Vital Signs Pulse 82 05/27/25 13:30 BP 148/82 H 05/27/25 13:30 Pulse Ox 94 05/27/25 13:30 Oxygen Delivery Method Room Air 05/27/25 13:30 BMI result Body Mass Index 40.7 Const General: cooperative, healthy appearing, comfortable, no acute distress, well developed and alert Nutritional Appearance: obese Orientation/consciousness: patient oriented x3 Limitations: no limitations HEENT Head: Yes normal to inspection, Yes normocephalic and Yes atraumatic Ears: hearing grossly normal bilaterally and external ears normal Eyes General: appearance normal, both eyes and all related structures Eyelids: Yes eyelids normal Sclerae: sclerae normal EOM: EOMs intact bilaterally Neck Neck: Yes normal visual inspection and Yes no lymphadenopathy Lymphatic: no lymphadenopathy noted Chest Chest palpation & inspection: normal inspection of the chest Resp Effort & Inspection: normal respiratory effort, able to speak in complete sentences, no audible wheezes, no cough, no stridor, not tachypneic, no tripod positioning and no use of accessory muscles Cardio Jugular venous distension: no JVD Rate: regular rate Rhythm: regular rhythm Skin Other: warm, dry General skin exam: no rashes or lesions noted Neuro General: patient oriented x3 Cranial nerves: Yes Normal hearing present Cognition (Neuro): normal cognition Gait exam (Neuro): Normal gait present Extrem General: Yes normal to inspection, Yes capillary refill normal, Yes no clubbing, cyanosis or edema and Yes no pedal edema Psych Appearance: grossly normal and well kempt Speech and movement: Normal speech and movement present and Clear speech present Affect: normal affect Attitude: cooperative Thought process: Normal thought process present Thought content: Normal thought content present Insight: Good insight present (Psych) Judgement: Good judgement present (Psych) Results Reviewed Results Reviewed: [address] [address] XRay Report Signed Patient: Horace Yin MR#: [id number] : 1980 Acct:[id number] Age/Sex: 44 / M ADM Date: 04/21/25 Loc: HO.LAB Attending Dr: Josie Mc PA-C Ordering Physician: Josie Mc PA-C Date of Service: 04/21/25 Procedure(s): XR chest 2V Accession Number(s): [id number] cc: Nazario Burt PA-C; Josie Mc PA-C~ Reason for Exam: R05.9 - Cough, unspecified EXAMINATION: XR CHEST CLINICAL INFORMATION: R05.9 - Cough, unspecified COMPARISON: April 25, 2018 TECHNIQUE: PA and lateral views FINDINGS: Pulmonary reticular pattern. No gross consolidation, pleural effusion or pneumothorax. No hyperinflation. Cardiomediastinal silhouette size is normal. Multilevel spondylosis, thoracolumbar spine resulting in kyphotic deformity. XR/XR chest 2V IMPRESSION: Concerning chronic interstitial lung disease. Superimposed acute small airway inflammatory process cannot be excluded. Electronically signed by: Hugh Ambriz MD 04/21/2025 01:18 PM EDT Dictated By: Hugh Orr MD Signed By: <Electronically signed by Hugh Pearl MD in OV> 04/21/25 1318 DD/ 1310 TD/TT: 04/21/25 1312 Electronic Coils Supervisor: Assessment & Plan Assessment & Plan (1) Recurrent respiratory infection: Code(s): J98.8 - Other specified respiratory disorders Category: Medical (2) Abnormal chest xray: Code(s): R93.89 - Abnormal findings on diagnostic imaging of other specified body structures Category: Medical (3) Nicotine dependence, cigarettes, uncomplicated: Code(s): F17.210 - Nicotine dependence, cigarettes, uncomplicated Category: Medical Plan The patient's post-viral cough has resolved, but his extensive smoking history, recurrent respiratory infections, and non-specific inflammatory changes on a prior chest X-ray raise suspicion for an underlying condition such as COPD or asthma. To further evaluate, a chest CT scan and pulmonary function test will be ordered. We discussed allergy testing given seasonal URIs however patient would like to hold off on any blood work at this time. The patient has a significant smoking history and has been unsuccessful with prior quit attempts using Chantix and nicotine replacement therapy. He is willing to try Wellbutrin for smoking cessation, which he has taken previously for another indication without side effects. A prescription for Wellbutrin will be sent to his pharmacy, with instructions to take one pill daily for three days, then increase to twice daily. He was counseled to monitor for side effects, including nausea, vomiting, dry mouth, blurry vision, or mood changes, and to call office if they occur. The patient's reports of waking up gasping for air, in conjunction with his uncontrolled hypertension and large tonsils, are concerning for obstructive sleep apnea. He has a sleep study scheduled in 10 days. The results of this study will be reviewed at his four-week follow-up appointment to determine the need for treatment, such as a CPAP machine, unless this will be addressed by PCP. The patient reports consistently elevated home blood pressure readings (140/100 mmHg) for several weeks. He was advised to contact his primary care provider to discuss these readings before his next scheduled appointment, as he may need to start medication sooner. All questions were answered and patient is in agreement of plan. Will follow up in 4-6 weeks or sooner if needed. Orders: Orders PFT pulmonary function test Today J98.8 - Other specified respiratory disorders CT chest wo IV con Today R93.89 - Abnormal findings on diagnostic imaging of other specified body structures Medications: New bupropion HCl SR (Wellbutrin SR) start with 1 tablet for 3 days followed by 1 tablet AM and 1 tablet PM, plan to quit smoking in two weeks 300 mg (2 x 150 mg) PO BEDTIME 33 tabs 0RF Coding Level of Care Code New Pt Level 4 (16902) Complex visit Add On G2211 Diagnoses Recurrent respiratory infection J98.8 Abnormal chest xray R93.89 Nicotine dependence, cigarettes, uncomplicated F17.210
--- OUTSIDE RECORDS SUMMARY | 2025-05-27 17:28 | XMS_ITS | Clinical Summary ---
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
--- OUTSIDE RECORDS SUMMARY | 2025-05-27 17:28 | XMS_ITS | Data Portability ---
Author Organization [place] - [facility], [facility] Address [address] [place] [address] Assessment Encounter Date Assessment Date Assessment LastModified [...] [place], upper respirato ry specimen 2022 023 [facility], [address] [place] [address], [phone], 3 14:39:49 rapid strep group A, throat 2022 023 [facility], [address] [place] [address], [phone], 14:29:26 Referral None recorded. Procedures None recorded. Surgeries None recorded. Imaging None recorded. Medication Orders ibuprofen 800 mg tablet 2022 023 [place] [id number], [address] [place], [phone], 3 15:04:36 albuterol sulfate HFA 90 mcg/actua tion aerosol inhaler 2022 023 [id number], [address] [place], [place], [phone], 3 15:03:03 Patient TargetsNo targets recorded. Patient InstructionsNo instructions recorded. Reason for Referral None Reported. Results Created Date Observation Date Name Description Value Unit Range Abnormal Flag Note LastModifiedBy Organization Detail LastModifiedTime 02/07/2002/09/2023 STREP TOCOC CUS, GROUP A CULTU RE streptococcu s, group A culture SEE NOTE STREP TOCOC CUS, GROUP A CULTU RE Micro Numbe r: [id number] Test Statu s: Final Speci men Sourc e: Not given Speci men Quali ty: Adequ ate Resul t: No group A Strep tococ cus isola fuentes Not Available [facility] [address], [place], [address], 02/09/2023 05:16:55 02/07/2002/06/2023 rapid influ ho virus A + B and SARS CoV + SARS CoV 2 Ag panel , [place], upper respi rator y speci men flu A negati ve normal Not Available [address], [address], 02/06/2023 14:17:34 02/07/20 23 02/06/2023 rapid influ ho virus A + B and SARS CoV + SARS CoV 2 Ag panel , [place], upper respi rator y speci men flu B positi ve abnormal Not Available [address], [address], 02/06/2023 14:17:34 02/07/20 23 02/06/2023 rapid influ oh virus A + B and SARS CoV + SARS CoV 2 Ag panel , [place], upper respi rator y speci men sars positi ve abnormal Not Available [address], [address], 02/06/2023 14:17:34 02/07/20 23 02/06/2023 rapid strep group A, throa t rapid strep negati ve normal Not Available [address], [address], 02/06/2023 14:17:37 02/07/20 23 02/06/2023 rapid strep group A, throa t internal control verified Not Available [address], [address], 02/06/2023 14:17:37 Result Notes None recorded. Problems Name Problem SNOMED Code Status Onset Date Resolution Date Notes Provider Name and Address Organization Details Recorded Time Body mass index 30+ - obesity 288757419 Active 023 OSMAR HUERTA [address] [place], [address], [facility] 3 14:11:41 Tobacco user 890372772 Active 023 OSMAR HUERTA [address] [place], [address], [facility] 3 14:18:50 COVID-19 552936729 Active 023 02/12 OSMAR HUERTA [address] [place], [address], [facility] 3 15:04:03 Problem Notes None recorded. Medical [...] mass index (BMI) Body weight Oxygen saturation Heart rate Systolic And Diastolic Provider Name and Address Organization Details Last Updated DateTime 3 187.96 cm 38.4 kg/m2 884526. 12 g 97 % 85 /min 143/99 mm[Hg] [facility] 14:01:43 Date Recorded Body height Body mass index (BMI) Body weight Oxygen saturation Body temperature Systolic And Diastolic Provider Name and Address Organization Details Last Updated DateTime 3 187.96 cm 38.4 kg/m2 182838. 12 g 97 % 97.9 [degF] 143/99 mm[Hg] [facility] 3 14:10:56 Social History None recorded. Functional Status None recorded. Mental Status None recorded. Family History Nothing Reported. Medical History No medical history recorded. Past Encounters Encounter ID Performer Location Encounter Start Date Encounter Closed Date Diagnosis/Indication Diagnosis SNOMED-CT Code Diagnosis ICD10 Code Diagnosis IMO Codes Diagnosis Note [id number] OSMAR HUERTA [address] [address] 02/06/2023 14:10:21 02/06/2023 17:28:01 Upper respiratory infection 80108032 J06.9 COVID-19 466863615 U07.1 Influenza caused by Influenza B virus 38089640 J10.1 Health Concerns Section Related Observation LastModified by Organization Detai ls LastModified Time None Recorded Concern Status LastModified by Organization Details LastModified Time None Recorded Advance Directives Directive None Recorded Payers Insurance Date Sequence Insurance Name Policy Number Policy Hutchinson Covered Member ID Hutchinson Member ID Guarantor Name 03/06/2023 1 MEDICARE B-MD: [employer] Horace Yin [id number] Horace Yin 02/07/2023 MEDICARE B-NE: [employer] Horace Yin [id number] Horace Edwardsh 02/07/2023 MEDICARE A-NE: NGS - [facility] - [facility] Horace Mott Annamaria [id number] Horace Mott Annamaria Notes Date Note [...] any OTC cold medications. OSMAR HUERTA [address] [place], [address], [facility] 02/06/2023 15:05:31
== END 2025-05-27 14:09 | disposition home or self-care (01) ==
LOC: HO.HPSW 13:22
PROVIDERS: PCP Physician Assistant; Visit Provider Nurse Practitioner Family
DX: J98.8 Other specified respiratory disorders (principal); R93.89 Abnormal findings on diagnostic imaging of other specified body structures; F17.210 Nicotine dependence, cigarettes, uncomplicated
CPT/HCPCS: 99204; G2211

== ENCOUNTER → 2025-05-27 13:22 | Outpatient (BNVA) | payer MEDICARE, MEDICAID, SELFPAY | PROVIDERS: PCP Physician Assistant; Visit Provider Nurse Practitioner Family | DX: J84.9 Interstitial pulmonary disease, unspecified (principal); J98.8 Other specified respiratory disorders; R93.89 Abnormal findings on diagnostic imaging of other specified body structures; F17.210 Nicotine dependence, cigarettes, uncomplicated | CPT/HCPCS: 99202 ==

== ENCOUNTER 2025-06-02 09:35 | Outpatient (AMB) | payer MEDICARE, MEDICAID, SELFPAY ==
--- NOTE | 2025-06-02 09:44 | MHC.PC.OV ---
Vital Signs 06/02/25 09:45 Height 6 ft 1 in Weight 309 lb BMI 40.8 BP 150/100 H Blood Pressure Location Lt brachial Position Sitting Pulse 100 Pulse Source Pulse Oximeter Temp 97.5 F Temp Source Temporal Artery Scan Pulse Oximetry (%) 96 Oxygen Delivery Method Room Air Intake Visit Reasons: f/u BP Intake Note: Patient is here to follow up on BP. Ticketing Clerk Required: No Building Guard Deputy Sheriff: Not Required per policy Accompanied by: Self / Same As Patient Allergies No Known Allergies Allergy (Verified 06/02/25 09:48) Medication List - Last Reconciled 06/02/25 by Josie Mc PA-C blood pressure test kit-large As directed buprenorphine-naloxone 8-2 mg (Suboxone) 25 mg sublingual DAILY bupropion HCl SR (Wellbutrin SR) 300 mg (2 x 150 mg) PO BEDTIME cholecalciferol (vitamin D3) 25 mcg PO DAILY Tobacco use date assessed: 06/02/25 Dental Screening Dental Screen Date: 04/21/25 HPI f/u BP HPI Details 44 year old male with past medical history of interstitial lung disease and tobacco use disorder last seen 03/2025 coming in for follow up on blood pressure. In review of the notes, patient was seen by pulm 05/[address] lungs and PFT and started on Wellbutrin for smoking and recommended sleep study which has been previously scheduled.? Presenting for management of high blood pressure. He reports his blood pressure has been consistently high, with a reading of 151 overnight, and it has not been lower than that. A sleep study is scheduled for next week to investigate for possible sleep apnea. He reports feeling sleepy after meals, which may be related to sleep apnea. Regarding medications, he has not yet started the prescribed Wellbutrin. Recent lab work showed elevated liver enzymes and borderline cholesterol. [facility] Surgical History No pertinent past surgical history Family History Father No problems noted. Mother No problems noted. Maternal Grandmother Lung cancer Paternal Grandfather Heart attack Paternal Grandmother Heart attack Social History Housing: House Patient Tobacco Use Status: Current everyday Tobacco user Tobacco use type: Cigarette Cigarette Packs Per Day: 1.5 Cigarettes Per Day: 30 e-Cigarette/Vaping Use: Never Used Second Hand Smoke Exposure: Yes service: No Current occupational status: disabled Cognitive needs: No Hearing needs: No Vision needs: No Questionnaire PHQ-9 Over the last 2 weeks, how often have you been bothered by any of the following problems? 1. Little interest or pleasure in doing things: nearly every day 2. Feeling down, depressed, or hopeless: not at all 3. Trouble falling or staying asleep, or sleeping too much: not at all 4. Feeling tired or having little energy: not at all 5. Poor appetite or overeating: not at all 6. Feeling bad about yourself - or that you are a failure or have let yourself or your family down: not at all 7. Trouble concentrating on things, such as reading the newspaper or watching television: not at all 8. Moving or speaking so slowly that other people could have noticed. Or the opposite - being so fidgety or restless that you have been moving around a lot more than usual: not at all 9. Thoughts that you would be better off or of hurting yourself in some way: not at all Total score: 3 Depression Screening Interpretation: Positive Depression Screening Done: Yes Source: Developed by Drs. Vinayak George, Ana Vidales, Darrius Mancini and colleagues, with an educational tran from [employer]. Thrive Questionnaire Date Thrive assessed: 04/21/25 I am a: Patient What is your living situation today?: I have a steady place to live Within the past 12 months, did the food you bought not last and you didn't have the money to get more?: I choose not to answer this question Within the past 12 months, did you worry whether your food would run out before you got money to buy more?: I choose not to answer this question Do you have trouble paying for medicines?: I choose not to answer this question Do you have trouble getting transportation to medical appointments?: I choose not to answer this question Do you have trouble paying your heating and electricity bill?: I choose not to answer this question Do you have trouble taking care of your child, family member or friend?: I choose not to answer this question Do you have trouble with day-to-day activities such as bathing, preparing meals, shopping, managing finances, etc.?: I choose not to answer this question Are you currently unemployed and looking for a job?: I choose not to answer this question Are you interested in more education?: I choose not to answer this question Please select the resources that you would like help with: None Currently or been in a relationship where the following occur: I choose not to answer THRIVE Score: 0 AUDIT C Alcohol Use Questionnaire (AUDIT-C) 1. How often do you have a drink containing alcohol?: Never Total Score: 0 MEENA-7 AMB Questionnaire MEENA-7 Date MEENA - 7 assessed: 04/21/25 Feeling nervous, anxious, or on edge: 0 = Not at all Not being able to stop or control worryin = Not at all Worrying too much about different things: 0 = Not at all Trouble relaxin = Not at all Being so restless that it is hard to sit still: 0 = Not at all Becoming easily annoyed or irritable: 0 = Not at all Feeling afraid as if something awful might happen: 0 = Not at all Total MEENA-7 score (0-4 normal; 5-9 mild; 10-14 moderate; 15-21 severe): 0 Source: Developed by Drs. Vinayak George, Ana Vidales, Darrius Mancini and colleagues, with an educational tran from [employer]. Review of Systems Const Denies body aches, Denies chills, Denies fever(s), Denies headache(s) and Denies poor appetite Eyes Reports no additional complaints ENT Denies dizziness and Denies headache(s) Card Denies chest pain, Denies irregular heart rhythm, Denies lightheadedness and Denies dyspnea Resp Denies cough and Denies dyspnea GI Denies nausea and Denies vomiting Musc Reports no additional complaints and Denies abnormal gait Skin/Breast Reports system reviewed and no additional complaints, except as documented Neuro Denies abnormal gait, Denies dizziness and Denies headache(s) Psych Reports no additional complaints Physical exam (Primary Care) Vital Signs: Last Vital Signs Temp 97.5 F 06/02/25 09:45 Oxygen Delivery Method Room Air 06/02/25 09:45 BMI result Body Mass Index 40.8 Tobacco/Smoking Status: Tobacco use Status Tobacco use date assessed 04/21/25 04/21/25 11:48 Patient Tobacco Use Status Current everyday Tobacco 05/27/25 13:33 Tobacco use type Cigarette 05/27/25 13:33 e-Cigarette/Vaping Use Never Used 05/27/25 13:33 Depression Screening Interpretation: Positive Thrive Assessment: Date of Thrive Assessment Date Thrive assessed 04/21/25 04/21/25 11:50 Currently or been in a relationship where the following occur: I choose not to answer Const General: cooperative, healthy appearing, comfortable and no acute distress Orientation/consciousness: patient oriented x3 HENMT Head: Yes normocephalic Ears: hearing grossly normal bilaterally General nose exam: Normal external nose present Eyes General: appearance normal, both eyes and all related structures Conjunctivae: conjunctivae normal Neck Neck: Yes full ROM and Yes no lymphadenopathy Resp Effort & Inspection: normal respiratory effort Auscultation: clear to auscultation bilaterally, no crackles, no rales, no rhonchi and no wheezes Cardio Rate: regular rate Rhythm: regular rhythm Skin General skin exam: no rashes or lesions noted Neuro General: patient oriented x3 Gait exam (Neuro): Normal gait present Extrem General: Yes normal to inspection, Yes full ROM and No edema Psych Affect: normal affect Attitude: cooperative Insight: Good insight present (Psych) Judgement: Good judgement present (Psych) Coding Level of Care Code Est Pt Level 3 (75077) Diagnoses Hypertension I10 Interstitial lung disease J84.9 Hypersomnolence G47.10 Tobacco use disorder F17.200 Morbid obesity with BMI of 40.0-44.9, adult E66.01; Z68.41 Elevated LFTs R79.89 Assessment & Plan Assessment & Plan (1) Hypertension: Code(s): I10 - Essential (primary) hypertension Category: Medical Plan: The patient's blood pressure is persistently elevated, with a reading of 150/100 mmHg in the office today. He will be started on lisinopril 10 mg daily. He was counseled on potential side effects, including a dry cough and the emergency sign of lip or tongue swelling. The medication may take 2-3 weeks for full effect, and the dose may be increased if the blood pressure remains high. He will monitor his blood pressure and reach out if consistently above 140/90. He will follow up in two months to recheck his blood pressure. (2) Interstitial lung disease: Code(s): J84.9 - Interstitial pulmonary disease, unspecified Category: Medical Plan: Continue to follow with pulmonology and advised to schedule CT and PFT (3) Hypersomnolence: Code(s): G47.10 - Hypersomnia, unspecified Category: Medical Plan: Awaiting sleeo study on Friday. (4) Tobacco use disorder: Comment: [place] Code(s): F17.200 - Nicotine dependence, unspecified, uncomplicated Category: Medical Plan: Smoking cigarettes and the use of tobacco can be harmful. We discussed the importance of stopping and options to aid in smoking cessation. Has not yet picked up Wellbutrin. Encouraged smoking cessation as it would benefit his HTN and ILD. (5) Morbid obesity with BMI of 40.0-44.9, adult: Code(s): E66.01 - Morbid (severe) obesity due to excess calories; Z68.41 - Body mass index [BMI] 40.0-44.9, adult Category: Medical Plan: Healthy diet and regular exercise is encouraged. Patient was counseled today on the risks and benefits of GLP-1 injections as well as the dosing schedule. She has no family history or personal history of thyroid disease and no gallbladder disease. Discussed with the patient the potential GI side effects of this medication. Plan to have repeat blood work after one month of therapy to monitor kidney and liver function before increasing the dose of this medication. Follow up in 3 months for a weight check. (6) Elevated LFTs: Code(s): R79.89 - Other specified abnormal findings of blood chemistry Category: Medical Plan: Healthy diet and regular exercise is encouraged. Plan for updated blood work and consider abd US. Plan This note was constructed using voice recognition software. While every effort has been made to ensure accuracy and endoscope technician, still areas may have been included sometimes these areas may affect the content or meeting of the given symptoms. Total time spent caring for the patient today was 20 minutes. This includes time spent before the visit reviewing the chart, time spent during the visit, and time spent after the visit and documentation. Patient was informed and verbally consented to the use of an ambient scribe for clinic note documentation during this visit. Orders: Orders Hepatitis B,C Profile Today R7. - Other specified abnormal findings of blood chemistry Liver Panel Today R7. - Other specified abnormal findings of blood chemistry Medications: New lisinopril 10 mg PO DAILY 90 tabs 0RF tirzepatide (weight loss) (Zepbound) for 4 weeks 2.5 mg (0.5 mL) subcut QWEEK 2 mL 0RF E66.01 - Morbid (severe) obesity due to excess calories, I10 - Essential (primary) hypertension, R79.89 - Other specified abnormal findings of blood chemistry, Z68.41 - Body mass index [BMI] 40.0-44.9, adult
[2025-06-02 09:45] VITALS: BP 150/100; PULSE 100; TEMP 36.4; O2SAT 96; BMI 40.8
== END 2025-06-02 10:11 | disposition home or self-care (01) ==
PROVIDERS: PCP Physician Assistant
DX: I10 Essential (primary) hypertension (principal); J84.9 Interstitial pulmonary disease, unspecified; E66.01 Morbid (severe) obesity due to excess calories; Z68.41 Body mass index [BMI] 40.0-44.9, adult; G47.10 Hypersomnia, unspecified; F17.200 Nicotine dependence, unspecified, uncomplicated; R79.89 Other specified abnormal findings of blood chemistry

== ENCOUNTER → 2025-06-02 09:35 | Outpatient (BNVA) | payer MEDICARE, MEDICAID, SELFPAY | PROVIDERS: PCP Physician Assistant | DX: I10 Essential (primary) hypertension (principal); J84.9 Interstitial pulmonary disease, unspecified; G47.10 Hypersomnia, unspecified; E66.01 Morbid (severe) obesity due to excess calories; Z68.41 Body mass index [BMI] 40.0-44.9, adult; F17.200 Nicotine dependence, unspecified, uncomplicated; R79.89 Other specified abnormal findings of blood chemistry | CPT/HCPCS: 99212 ==

== ENCOUNTER → 2025-06-06 13:31 | Outpatient (REF) | payer MEDICARE, MEDICAID, SELFPAY ==
--- OUTSIDE RECORDS SUMMARY | 2025-06-06 19:42 | XMS_ITS | Clinical Summary ---
Author Organization [facility] ity Address [address] [place] [address] Care Team Providers Care Tape Recording Machine Operator Name Role Phone Unavailable Primary Care Provider [...]
--- OUTSIDE RECORDS SUMMARY | 2025-06-06 19:42 | XMS_ITS | Data Portability ---
Author Organization [place] - [facility] Address [address] [place] [address] Assessment Encounter Date Assessment Date Assessment LastModified [...] [place], upper respirato ry specimen 2022 023 [facility], [address] [place] [address], [phone], 3 14:39:49 rapid strep group A, throat 2022 023 [facility], [address] [place] [address], [id number], 3 14:29:26 Referral None recorded. Procedures None recorded. Surgeries None recorded. Imaging None recorded. Medication Orders ibuprofen 800 mg tablet 2022 023 [id number], [address], [place], [id number], 3 15:04:36 albuterol sulfate HFA 90 mcg/actua tion aerosol inhaler 2022 023 [id number], [address], [place], [phone], 3 15:03:03 Patient TargetsNo targets recorded. Patient InstructionsNo instructions recorded. Reason for Referral None Reported. Results Created Date Observation Date Name Description Value Unit Range Abnormal Flag Note LastModifiedBy Organization Detail LastModifiedTime 02/07/2002/09/2023 STREP TOCOC CUS, GROUP A CULTU RE streptococcu s, group A culture SEE NOTE STREP TOCOC CUS, GROUP A CULTU RE Micro Numbe r: [id number] Test Statu s: Final Speci men Sourc e: Not given Speci men Quali ty: Adequ ate Resul t: No group A Strep tococ cus isola fuentes Not Available [facility] [address], [place], [address], 02/09/2023 05:16:55 02/07/2002/06/2023 rapid influ ho virus A + B and SARS CoV + SARS CoV 2 Ag panel , [place], upper respi rator y speci men flu A negati ve normal Not Available [address], [address], 02/06/2023 14:17:34 02/07/20 23 02/06/2023 rapid influ ho virus A + B and SARS CoV + SARS CoV 2 Ag panel , [place], upper respi rator y speci men flu B positi ve abnormal Not Available [address], [address], 02/06/2023 14:17:34 02/07/20 23 02/06/2023 rapid influ ho virus A + B and SARS CoV + SARS CoV 2 Ag panel , [place], upper respi rator y speci men sars positi ve abnormal Not Available [address], [address], 02/06/2023 14:17:34 02/07/20 23 02/06/2023 rapid strep group A, throa t rapid strep negati ve normal Not Available [address], [address], 02/06/2023 14:17:37 02/07/20 23 02/06/2023 rapid strep group A, throa t internal control verified Not Available [address], [address], 02/06/2023 14:17:37 Result Notes None recorded. Problems Name Problem SNOMED Code Status Onset Date Resolution Date Notes Provider Name and Address Organization Details Recorded Time Body mass index 30+ - obesity 417127317 Active 023 OSMAR HUERTA [address] [place], [address], [facility] 3 14:11:41 Tobacco user 163707827 Active 023 OSMAR HUERTA [address] [place], [address], [facility] 3 14:18:50 COVID-19 279310761 Active 023 02/12 OSMAR HUERTA [address] [place], [address], [facility] 3 15:04:03 Problem Notes None recorded. Medical [...] Updated DateTime 3 187.96 cm 38.4 kg/m2 197452. 12 g 97 % 85 /min 143/99 mm[Hg] Bhakti Franklin [facility] 14:01:43 Date Recorded Body height Body mass index (BMI) Body weight Oxygen saturation Body temperature Systolic And Diastolic Provider Name and Address Organization Details Last Updated DateTime 3 187.96 cm 38.4 kg/m2 786522. 12 g 97 % 97.9 [degF] 143/99 mm[Hg] Pawel Gaona [facility] 3 14:10:56 Social History None recorded. Functional Status None recorded. Mental Status None recorded. Family History Nothing Reported. Medical History No medical history recorded. Past Encounters Encounter ID Performer Location Encounter Start Date Encounter Closed Date Diagnosis/Indication Diagnosis SNOMED-CT Code Diagnosis ICD10 Code Diagnosis IMO Codes Diagnosis Note [id number] OSMAR HUERTA [address] [address] 02/06/2023 14:10:21 02/06/2023 17:28:01 Upper respiratory infection 21244696 J06.9 COVID-19 295138328 U07.1 Influenza caused by Influenza B virus 86421774 J10.1 Health Concerns Section Related Observation LastModified by Organization Detai ls LastModified Time None Recorded Concern Status LastModified by Organization Details LastModified Time None Recorded Advance Directives Directive None Recorded Payers Insurance Date Sequence Insurance Name Policy Number Policy Hutch[place] Covered Member ID Hutchinson Member ID Guarantor Name 03/06/2023 1 [place] [employer] Horace Yin [id number] 7 Horace Yin 02/07/2023 [place] [employer] Horace Yin [id number] Horace Edwardsh 02/07/2023 [id number] [id number] [facility] Horace Mott Annamaria [id number] 7 Horace Mott Annamaria Notes Date Note [...] any OTC cold medications. OSMAR HUERTA [address] [place], [address], [facility] 02/06/2023 15:05:31
== END ==
LOC: HO.SL 13:31
DX: G47.10 Hypersomnia, unspecified (principal)
CPT/HCPCS: 95806

== ENCOUNTER → 2025-06-07 13:40 | Outpatient (BNV) | payer MEDICARE, MEDICAID, SELFPAY | PROVIDERS: Visit Provider Psychiatry & Neurology Neurology | DX: G47.33 Obstructive sleep apnea (adult) (pediatric) (principal); G47.10 Hypersomnia, unspecified | CPT/HCPCS: 95806 ==